=== PATIENT | male | born 1950 | race Caucasian/White ===

== ENCOUNTER 2024-04-11 14:32 | Outpatient (OUT) | payer OTHER, SELFPAY ==
--- NOTE | 2024-04-11 14:45 | VEIN_ITS ---
The [address] [address] Patient Name: TERRA RODNEY MRN: [id number] date: 1950 Sex: M Assigned Patient Location: Current Patient Location: Accession/Order Number: [id number] Exam Date: 04/11/2024 14:47 Report Date: 04/16/2024 07:51 At the request of: MARIANELA LEONARDO Procedure: VC SEGMENTAL PRESSURES EXAM: VC SEGMENTAL PRESSURES HISTORY: I70.212 COMPARISON: None. FINDINGS: Segmental pressures presented as follows (right, left) in mmHg. Brachial: 110, 119 Upper thigh: 195, 176 Lower thigh: 177, 171 Calf: 150, 138 DPA: 105, 115 [employer]: 140, 127 1st Toe: 95, 94 SHORTY: 1.18, 1.07 TBI: 0.8, 0.79 The ABIs are Normal The TBI's are Acceptable PVR waveforms: Right leg: Thigh: Normal Above knee: Normal Below knee: Normal Right ankle: Normal Left leg: Thigh: Normal Above knee: Normal Below knee: Normal Right ankle: Normal VEIN/VC SEGMENTAL PRESSURES IMPRESSION: Normal exam Electronically authenticated by: OLEKSANDR ARIZA Date: 04/16/2024 07:51
== END 2024-04-11 14:33 | disposition home or self-care (01) ==
PROVIDERS: PCP Podiatrist; Visit Provider Podiatrist
DX: I70.212 Atherosclerosis of native arteries of extremities with intermittent claudication, left leg (principal)
CPT/HCPCS: 93923